=== PATIENT | female | born 1980 | race African-American/Black ===

== ENCOUNTER 2018-01-19 18:44 | Emergency (ER) | payer OTHER ==
[~2018-01-19] VITALS: Ht 172.7 cm; Wt 60.8 kg
[2018-01-19 18:53] VITALS: Ht 172.7 cm; Wt 60.8 kg
[2018-01-19 19:57] LABS: microscopic required? YES; urine erythrocyte NEGATIVE (NEGATIVE)
[2018-01-19 19:59] LABS: BASOPHIL % 0.4 % (0-2); PLATELET COUNT 277 x10^3mcL (130-400)
[2018-01-19 20:01] LABS: CALCIUM 8.9 mg/dL (8.5-10.1); CARBON DIOXIDE 23.9 mmol/L (21-32); CHLORIDE SERUM 104 mmol/L (98-107); CREATININE SERUM 0.8 mg/dL (0.6-1.0); GFR1 > 60 mL/min; GLUCOSE SERUM 92 mg/dL (74-106); POTASSIUM SERUM 3.6 mmol/L (3.5-5.1); RED CELL DISTRIBUTION WIDTH 16.5 % (11.5-14.5); SODIUM SERUM 139 mmol/L (136-145)
[2018-01-19 20:14] LABS: ALKALINE PHOSPHATASE 92 U/L (46-116); AMYLASE 55 U/L (25-115); AST/SGOT 19 U/L (15-37); BILIRUBIN TOTAL 0.92 mg/dL (0.20-1.00); LIPASE 80 IU/L (73-393); T4(THYROXINE) 8.1 ug/dL (4.7-13.3)
[2018-01-19 20:15] LABS: ALBUMIN 2.8 g/dL (3.4-5.0); CHOLESTEROL 122 mg/dL (<200); HDL CHOLESTEROL 22 mg/dL (40-60); TOTAL PROTEIN, SERUM 9.4 g/dL (6.4-8.2)
[2018-01-19 20:24] LABS: ALT/SGPT 21 U/L (14-59)
[2018-01-19 20:25] LABS: AMPHETAMINE QUAL UR NONE DETECTED (See below)
[2018-01-19 23:01] VITALS: BP 108/67
== END 2018-01-19 23:01 | disposition home or self-care (01) ==
LOC: ED 18:44
PROVIDERS: Emergency Medicine
DX: M32.8 Other forms of systemic lupus erythematosus (principal); A69.1 Other Vincent's infections; N39.0 Urinary tract infection, site not specified; F12.90 Cannabis use, unspecified, uncomplicated; F17.210 Nicotine dependence, cigarettes, uncomplicated; Z88.2 Allergy status to sulfonamides
CPT/HCPCS: 36415; 87804; 99406; J1100; J1885; Q0092